=== PATIENT | female | born 1995 | race Caucasian/White ===

== ENCOUNTER 2020-07-20 18:13 | Inpatient (IN) | payer OTHER ==
[2020-07-20] MEDS ORDERED: PROMETHAZINE HCL 25 MG/1 ML VIAL IVPUSH ONE (18:41)
[2020-07-20] MEDS ORDERED: BUTORPHANOL TARTRATE 2 MG/ML VIAL IVPB ONE (18:41)
[2020-07-20] MEDS ORDERED: SODIUM PHOSPHATE/NA BIPHOS 133 ML ENEMA PR ONE (18:45)
[2020-07-20 19:00] VITALS: BMI 34.3
[2020-07-20] MEDS ORDERED: DINOPROSTONE 10 MG VAGINAL SUPPOSITORY VG ONE (19:15)
[2020-07-20 20:34] LABS: BASO % 0.5 % (0-2.0); EOS % 0.9 % (0-4.5); HEMATOCRIT 39.4 % (32.4-45.2); HEMOGLOBIN 13.3 GM/dL (10.7-15.3); LYMPH % 24.1 % (8-40); MCH 32.1 pg (25.7-33.7); MCHC 33.8 g/dl (32.0-36.0); MEAN PLT VOLUME 9.6 fl (7.5-11.1); MONO % 11.1 % (3.8-10.2); NEUT % 63.4 % (42.8-82.8); PLATELET COUNT 204 K/MM3 (134-434); RBC 4.15 M/mm3 (3.60-5.2); RDW 13.7 % (11.6-15.6); WHITE BLOOD COUNT 10.7 K/mm3 (4.0-10.0)
[2020-07-20 20:40] LABS: INR 1.03 (0.83-1.09); PROTHROMBIN TIME (PATIENT) 12.6 SEC (9.7-13.0)
[2020-07-20 20:42] LABS: ACTIVATED PTT 28.3 SECONDS (25.2-36.5)
[2020-07-20 20:59] LABS: POTASSIUM 4.5 mmol/L (3.5-5.1)
[2020-07-20 21:00] LABS: CALCIUM 8.9 mg/dL (8.5-10.1)
[2020-07-20 21:01] LABS: BLOOD UREA NITROGEN 10.1 mg/dL (7-18)
[2020-07-20 21:04] LABS: CREATININE 0.6 mg/dL (0.55-1.3)
[2020-07-20 21:56] LABS: HIV INTERPRETATION NEGATIVE (NEGATIVE)
[2020-07-21] MEDS ORDERED: DINOPROSTONE 10 MG VAGINAL SUPPOSITORY VG ONE (10:42)
[2020-07-21] MEDS: DEXTROSE 5%-LACTATED RINGERS 1,000 ML IV SCH ×2 (12:00→23:43)
[2020-07-21] MEDS ORDERED: FENTANYL/BUPIVACAINE/NS/PF - PCEA - 50 ML DISP.SYRIN EP ONE (23:02)
[2020-07-21] MEDS ORDERED: PCA PUMP NR ONE (23:02)
[2020-07-21] MEDS ORDERED: BUPIVACAINE HCL/PF 0.25% (2.5MG/ML) 10 ML VIAL ONE (23:03)
[2020-07-21] MEDS ORDERED: NALOXONE HCL 0.4 MG/ML VIAL IVPUSH PRN (23:27)
[2020-07-21] MEDS ORDERED: FENTANYL/BUPIVACAINE/NS/PF - PCEA - 50 ML DISP.SYRIN EP SCH ×2 (23:30→23:59)
[2020-07-22] MEDS ORDERED: FENTANYL/BUPIVACAINE/NS/PF - PCEA - 50 ML DISP.SYRIN EP ONE ×2 (05:30→09:37)
[2020-07-22] MEDS ORDERED: OXYTOCIN 30 UNITS in 0.9% NS 30 UNIT/500 ML INFUS.BAG IVPB ONE (07:31)
[2020-07-22] MEDS: OXYTOCIN 30 UNITS in 0.9% NS 30 UNIT/500 ML INFUS.BAG IVPB SCH ×2 (07:35→08:59)
[2020-07-22] MEDS ORDERED: PCA PUMP NR ONE (09:37)
[2020-07-22] MEDS ORDERED: CITRIC ACID/SODIUM CITRATE 30 ML UNIT-DOSE CUP PO ONE (10:24)
[2020-07-22] MEDS ORDERED: LIDOCAINE HCL 2% 100 MG/5 ML DISP.SYRIN ONE (11:14)
[2020-07-22] MEDS ORDERED: LIDO 2%/EPI 1:200000 PRESRVFRE (20 ML SDVIAL) ONE (11:15)
[2020-07-22] MEDS ORDERED: morphine SULFATE/Preservative Free 0.5 MG/ML (1cc Syringe) ONE ×2 (11:42)
[2020-07-22] MEDS ORDERED: oxyCODONE HCL 5 MG TABLET PO PRN (12:53)
[2020-07-22] MEDS ORDERED: METHYLERGONOVINE MALEATE 0.2 MG/1 ML AMP IM PRN (12:53)
[2020-07-22] MEDS ORDERED: ONDANSETRON 4 MG/2 ML VIAL IVPUSH PRN (12:54)
[2020-07-22] MEDS ORDERED: OXYTOCIN 20 UNITS in 0.9% NS 20 UNIT/1,000 ML INFUS.BAG IV SCH (13:00)
[2020-07-22 13:06] LABS: CORD BASE EXCESS -5.7 mmol/L (0-2); CORD HCO3 22.4 mmHg (20-29); CORD PCO2 53.6 mmHg (30-78); CORD pH 7.239 (7.14-7.44)
[2020-07-22 13:07] LABS: CORD PCO2 74.1 mmHg (30-78); CORD pH 7.128 (7.14-7.44)
[2020-07-22] MEDS ORDERED: OXYTOCIN 20 UNITS in 0.9% NS 20 UNIT/1,000 ML INFUS.BAG IV ONE (14:02)
[2020-07-22] MEDS ORDERED: ACETAMINOPHEN INJECTION 100 ML IVPB ONE (14:02)
[2020-07-22] MEDS ORDERED: ACETAMINOPHEN 1000 MG/100 ML VIAL (NON FORMULARY) IVPB ONE (14:15)
[2020-07-22] MEDS: CEFAZOLIN 1 GM/D5W 1 GM/50 ML BAG IVPB SCH (17:15)
[2020-07-22] MEDS: IBUPROFEN 800 MG/8 ML IJ IVPB PRN (17:59)
[2020-07-22] MEDS: FERROUS SO4 325 MG TABLET (FP) PO SCH (23:11)
[2020-07-23] MEDS: CEFAZOLIN 1 GM/D5W 1 GM/50 ML BAG IVPB SCH ×2 (01:26→09:42)
[2020-07-23] MEDS: IBUPROFEN 800 MG/8 ML IJ IVPB PRN (02:40)
[2020-07-23 08:39] LABS: BASO % 0.8 % (0-2.0); EOS % 0.2 % (0-4.5); HEMATOCRIT 36.4 % (32.4-45.2); HEMOGLOBIN 12.1 GM/dL (10.7-15.3); LYMPH % 15.9 % (8-40); MCH 31.8 pg (25.7-33.7); MCHC 33.4 g/dl (32.0-36.0); MEAN CELL VOLUME 95.2 fl (80-96); MEAN PLT VOLUME 9.3 fl (7.5-11.1); MONO % 8.3 % (3.8-10.2); NEUT % 74.8 % (42.8-82.8); PLATELET COUNT 194 K/MM3 (134-434); RBC 3.82 M/mm3 (3.60-5.2); WHITE BLOOD COUNT 19.5 K/mm3 (4.0-10.0)
[2020-07-23] MEDS: ENOXAPARIN NA (PORCINE) 40 MG/0.4 ML DISP.SYRIN SQ SCH (09:44)
[2020-07-23] MEDS: FERROUS SO4 325 MG TABLET (FP) PO SCH ×2 (09:44→22:09)
[2020-07-23] MEDS: PRENATAL VITAMINS W/ FOLIC ACID TABLET (FP) PO SCH (09:44)
[2020-07-23] MEDS: SIMETHICONE 80 MG TAB.CHEW (FP) PO PRN ×2 (10:46→17:33)
[2020-07-23] MEDS: IBUPROFEN 600 MG TABLET (FP) PO PRN ×3 (10:46→22:10)
[2020-07-23] MEDS: ACETAMINOPHEN 325 MG TABLET (FP) PO PRN ×3 (10:47→22:09)
[2020-07-23] MEDS ORDERED: BISACODYL 10 MG SUPP.RECT RC PRN (12:53)
[2020-07-23] MEDS: SENNOSIDES/DOCUSATE COMBO (SENNA PLUS) TABLET (UD) PO PRN (22:09)
[2020-07-24] MEDS: ACETAMINOPHEN 325 MG TABLET (FP) PO PRN ×3 (05:14→19:14)
[2020-07-24] MEDS: IBUPROFEN 600 MG TABLET (FP) PO PRN ×3 (05:16→19:14)
[2020-07-24] MEDS: FERROUS SO4 325 MG TABLET (FP) PO SCH ×2 (09:02→21:19)
[2020-07-24] MEDS: ENOXAPARIN NA (PORCINE) 40 MG/0.4 ML DISP.SYRIN SQ SCH (09:03)
[2020-07-24] MEDS: PRENATAL VITAMINS W/ FOLIC ACID TABLET (FP) PO SCH (09:03)
[2020-07-24] MEDS: SIMETHICONE 80 MG TAB.CHEW (FP) PO PRN (19:14)
[2020-07-24] MEDS: SENNOSIDES/DOCUSATE COMBO (SENNA PLUS) TABLET (UD) PO PRN (21:19)
[2020-07-25] MEDS: ACETAMINOPHEN 325 MG TABLET (FP) PO PRN ×2 (02:34→10:36)
[2020-07-25] MEDS: IBUPROFEN 600 MG TABLET (FP) PO PRN ×2 (02:34→10:36)
[2020-07-25] MEDS: SIMETHICONE 80 MG TAB.CHEW (FP) PO PRN ×2 (02:34→10:36)
[2020-07-25] MEDS: ENOXAPARIN NA (PORCINE) 40 MG/0.4 ML DISP.SYRIN SQ SCH (10:09)
[2020-07-25] MEDS: FERROUS SO4 325 MG TABLET (FP) PO SCH (10:09)
[2020-07-25] MEDS: PRENATAL VITAMINS W/ FOLIC ACID TABLET (FP) PO SCH (10:09)
[2020-07-25 10:11] LABS: BASO % 0.8 % (0-2.0); EOS % 0.9 % (0-4.5); HEMATOCRIT 33.8 % (32.4-45.2); HEMOGLOBIN 11.3 GM/dL (10.7-15.3); LYMPH % 15.2 % (8-40); MCH 32.1 pg (25.7-33.7); MCHC 33.4 g/dl (32.0-36.0); MEAN PLT VOLUME 8.9 fl (7.5-11.1); MONO % 6.6 % (3.8-10.2); NEUT % 76.5 % (42.8-82.8); PLATELET COUNT 233 K/MM3 (134-434); RBC 3.52 M/mm3 (3.60-5.2); WHITE BLOOD COUNT 12.5 K/mm3 (4.0-10.0)
[2020-07-25 11:29] VITALS: BP 130/76; PULSE 79; TEMP 97.8
== END 2020-07-25 14:40 | disposition home or self-care (01) | DRG 540 ==
LOC: JLDR 18:13 → J3W 07-22 14:30
PROVIDERS: ADMIT Obstetrics & Gynecology; ATTEND Obstetrics & Gynecology
PROC: 3E0P7VZ Introduction of Hormone into Female Reproductive, Via Natural or Artificial Opening (ICD-10-PCS; 2020-07-20)
PROC: 10D00Z1 Extraction of Products of Conception, Low, Open Approach (ICD-10-PCS; principal; 2020-07-22)
DX: O61.0 Failed medical induction of labor (principal); O76 Abnormality in fetal heart rate and rhythm complicating labor and delivery; O48.0 Post-term pregnancy; Z3A.41 41 weeks gestation of pregnancy; Z37.0 Single live birth; O69.81X0 Labor and delivery complicated by cord around neck, without compression, not applicable or unspecified; Z86.19 Personal history of other infectious and parasitic diseases
CPT/HCPCS: 36415; 36600; 80048; 82803; 85025; 85610; 85730; 86780; 86803; 86850; 86900; 86901; 87340; 87389; 87529; 87902; 88307-TC; C9803; J0131; U0003